=== PATIENT | male | born 1970 ===

== ENCOUNTER 2018-11-26 19:25 | Emergency (ER) | payer SELFPAY ==
[~2018-11-26] VITALS: Ht 170.2 cm; Wt 70.3 kg
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
--- NOTE | 2018-11-26 19:55 | NUR ---
Dr. Rossi at bedside for MSE
--- NOTE | 2018-11-26 20:05 | NUR ---
Patient discharged to home in stable conditon. Written and verbal after care instructions given. Patient verbalizes understanding of instructions. All belongings taken.
[2018-11-26 20:08] VITALS: BP 138/75
== END 2018-11-26 20:09 | disposition home or self-care (01) ==
LOC: ER 19:27
DX: S01.01XA Laceration without foreign body of scalp, initial encounter (principal); F17.200 Nicotine dependence, unspecified, uncomplicated; Z88.1 Allergy status to other antibiotic agents; Y00.XXXA Assault by blunt object, initial encounter; Y93.89 Activity, other specified; Y92.89 Other specified places as the place of occurrence of the external cause; Y99.8 Other external cause status
CPT/HCPCS: A4663